=== PATIENT | female | born 1995 | race Caucasian/White ===

== ENCOUNTER 2016-10-13 21:25 | Emergency (ER) | payer BC ==
[~2016-10-13] VITALS: Ht 165.1 cm; Wt 68.0 kg
[2016-10-13 21:57] VITALS: BP 139/77
[2016-10-14] MEDS ORDERED: KETOROLAC 60MG/2ML VIAL IM ONE (01:00)
[2016-10-14] MEDS ORDERED: CYCLOBENZAPRINE 10MG TABLET PO ONE (01:00)
== END 2016-10-14 02:25 | disposition home or self-care (01) ==
LOC: ER 21:27
DX: S30.811A Abrasion of abdominal wall, initial encounter (principal); S16.1XXA Strain of muscle, fascia and tendon at neck level, initial encounter; S46.911A Strain of unspecified muscle, fascia and tendon at shoulder and upper arm level, right arm, initial encounter; F41.9 Anxiety disorder, unspecified; F12.10 Cannabis abuse, uncomplicated; Z88.0 Allergy status to penicillin; V43.92XA Unspecified car occupant injured in collision with other type car in traffic accident, initial encounter; Y93.89 Activity, other specified; Y92.488 Other paved roadways as the place of occurrence of the external cause; Y99.8 Other external cause status
CPT/HCPCS: 99283; Z7610; J1885; L0172